=== PATIENT | female | born 2000 | race Caucasian/White ===

== ENCOUNTER 2021-09-06 06:32 | Observation (INO) | END 2021-09-06 09:10 | disposition home or self-care (01) | LOC: 1NENULAB | PROVIDERS: ADMIT Advanced Practice Midwife; ATTEND Advanced Practice Midwife ==

== ENCOUNTER 2021-09-13 04:20 | Inpatient (IN) ==
[2021-09-13] MEDS ORDERED: Lidocaine 1% 20 ML MDV INFILT PRN (04:27)
[2021-09-13] MEDS ORDERED: Famotidine 20 MG/2 ML VIAL IVP PRN (04:27)
[2021-09-13] MEDS ORDERED: Ondansetron 4 MG/2 ML VIAL IVP PRN ×2 (04:27→09:59)
[2021-09-13] MEDS ORDERED: *HR* Nalbuphine 10 MG/ML AMPUL IV PRN (04:27)
[2021-09-13] MEDS ORDERED: Metoclopramide 10 MG/2 ML VIAL IVP PRN (04:27)
[2021-09-13] MEDS ORDERED: Naloxone 0.4 MG/ML INJ IVP PRN ×2 (04:27→09:59)
[2021-09-13] MEDS ORDERED: Ringers Solution, Lactated 1,000 ML IVC SCH (04:30)
[2021-09-13] MEDS ORDERED: miSOPROStoL 25 MCG TABLET PO PRN (05:10)
[2021-09-13 05:14] LABS: Basophils % 0.2 %; Eosinophils # 0.1 K/mcL (0.0-0.6); Eosinophils % 0.9 %; Hemoglobin 12.7 g/dL (11.5-15.4); Immature Granulocytes % 0.9 % (0-4); Lymphocytes # 2.7 K/mcL (0.6-4.6); Lymphocytes % 29.1 %; Mean Corpuscular HGB Conc 34.3 g/dL (31.6-35.5); Mean Corpuscular Hemoglobin 30.1 pg (28.0-33.3); Mean Corpuscular Volume 87.7 fL (83.0-100.0); Mean Platelet Volume 10.5 fL (9.4-12.4); Monocytes # 0.8 K/mcL (0.0-1.3); Monocytes % 8.4 %; Neutrophils # 5.5 K/mcL (1.6-8.9); Platelet Count 254 K/mcL (140-400); Red Blood Count 4.22 M/mcL (3.82-4.97); Red Cell Distribution Width 14.2 % (11.5-14.5); Segmented Neutrophils % 60.5 %; White Blood Count 9.1 K/mcL (4.3-11.1)
[2021-09-13 05:40] LABS: Amphetamine Screen,Urine Negative ng/mL (Cutoff=1000); Barbiturate Screen,Urine Negative ng/mL (Cutoff=200); Benzodiazepines Screen,Urine Negative ng/mL (Cutoff=200); Cannabinoid Screen,Urine Negative ng/mL (Cutoff = 50); Cocaine Screen,Urine Negative ng/mL (Cutoff= 300); Opiate Screen,Urine Negative ng/mL (Cutoff=300); Phencyclidine Screen,Urine Negative ng/mL (Cutoff=25)
[2021-09-13 06:01] LABS: Influenza A PCR Negative (Negative); Influenza B PCR Negative (Negative); Resp. Syncytial Virus PCR Negative (Negative)
[2021-09-13 06:02] LABS: SARS-CoV-2 by PCR (In House) Negative (Negative)
[2021-09-13] MEDS ORDERED: Ropivacaine/PF 0.2% 20 ML VIAL EP ONE (09:59)
[2021-09-13] MEDS ORDERED: EPHEDrine 50 MG/ML VIAL IVP PRN (09:59)
[2021-09-13] MEDS ORDERED: Epidural Premix (fent/bupiv) 110 ML EP SCH (10:00)
[2021-09-13] MEDS ORDERED: Oxytocin 20 units/ LR 1000 mL 20 UNIT/1,000 ML BAG IVC SCH (10:30)
[2021-09-14] MEDS ORDERED: Ropivacaine/PF 0.2% 20 ML VIAL ONE (03:08)
[2021-09-14] MEDS ORDERED: Ondansetron ODT 4 MG TAB.RAPDIS SL PRN (06:05)
[2021-09-14] MEDS ORDERED: Oxytocin 20 units/ LR 1000 mL 20 UNIT/1,000 ML BAG IVC SCH (06:05)
[2021-09-14] MEDS ORDERED: Benzocaine/Menthol 56 GM AEROSOL SPRAY TP PRN (06:05)
[2021-09-14] MEDS ORDERED: Oxytocin 20 units/ LR 1000 mL 20 UNIT/1,000 ML BAG IVC ONE (06:05)
[2021-09-14] MEDS ORDERED: Lanolin 7 G OINT...G. TP PRN (06:05)
[2021-09-14] MEDS: Ibuprofen 600 MG TABLET PO SCH ×3 (08:35→23:50)
[2021-09-14] MEDS: Prenatal Vit/FA 1 EACH TABLET PO SCH (08:35)
[2021-09-14] MEDS: Acetaminophen 325 MG TABLET PO SCH ×2 (11:12→20:02)
[2021-09-15] MEDS: Acetaminophen 325 MG TABLET PO SCH ×2 (03:50→09:16)
[2021-09-15 07:49] VITALS: BP 130/84; TEMP 98.2; O2SAT 99
[2021-09-15] MEDS: Prenatal Vit/FA 1 EACH TABLET PO SCH (09:16)
[2021-09-15] MEDS: Ibuprofen 600 MG TABLET PO SCH (09:16)
[2021-09-15 11:20] VITALS: PULSE 86
== END 2021-09-15 12:15 | disposition home or self-care (01) | DRG 560 ==
LOC: 1NENULAB 04:20 → 1NENUOBS 09-14 06:38
PROVIDERS: ADMIT Advanced Practice Midwife; ATTEND Advanced Practice Midwife